=== PATIENT | female | born 1995 | race Caucasian/White ===

== ENCOUNTER 2016-10-17 05:33 | Emergency (ER) | payer SELFPAY ==
[~2016-10-17] VITALS: Ht 170.2 cm; Wt 56.8 kg
[2016-10-17 05:38] VITALS: TEMP 97.6
[2016-10-17] MEDS ORDERED: XANAX 1MG1 MG PO (05:43)
[2016-10-17 06:21] LABS: BASO % 0.5 % (0.0-2.0); EOS # 0.1 (0.0-0.7); EOS % 1.4 % (0-4.0); GRAN # 3.3 (1.4-6.5); GRAN % 49.5 % (42.2-75.2); HEMATOCRIT 38.5 % (35.0-45.0); HEMOGLOBIN 12.8 g/dl (12.0-15.0); LYMPH # 2.7 (1.2-3.4); LYMPH % 41.2 % (20.0-51.0); MEAN CELL VOLUME 93 fl (80.0-95.0); MEAN CORPUSCULAR HEMOGLOBIN 31 pg (26.0-32.0); MEAN CORPUSCULAR HGB CONC 33 g/dl (33.0-37.0); MEAN PLATELET VOLUME 11.3 fl (7.4-10.4); MONO # 0.5 (0.1-0.6); MONO % 7.2 % (1.7-9.3); PLATELET COUNT 209 K/mm3 (130-400); RED BLOOD COUNT 4.15 M/mm3 (4.10-5.30); REDCELL DISTRIBUTION WIDTH-CV 13.9 % (11.5-14.5); WHITE BLOOD COUNT 6.6 K/mm3 (4.8-10.8)
[2016-10-17 06:25] LABS: PH 6 (5-8); SQUAMOUS EPITHELIAL 20-50 /hpf; URINE APPEARANCE Hazy; URINE BACTERIA Rare /hpf; URINE BILIRUBIN Negative (NEGATIVE); URINE BLOOD Negative (NEGATIVE); URINE COLOR Yellow; URINE GLUCOSE Negative (NEGATIVE); URINE KETONE Negative (NEGATIVE); URINE RBC 0-2 /hpf; URINE UROBILINOGEN Negative (NEGATIVE)
[2016-10-17 06:34] LABS: ADJUSTED CALCIUM 8.8 mg/dL (8.4-10.2); ALBUMIN 4.3 gm/dL (3.5-5.0); BILIRUBIN,TOTAL 0.7 mg/dL (0.0-1.0); CREATININE, serum 0.65 mg/dL (0.52-1.25); POTASSIUM 4.3 mmol/L (3.4-5.0); TOTAL PROTEIN 7.8 gm/dL (6.4-8.2)
[2016-10-17 08:11] VITALS: BP 109/68; PULSE 62
== END 2016-10-17 08:13 | disposition home or self-care (01) ==
LOC: COL.ER 05:33
PROVIDERS: Emergency Medicine
DX: R10.13 Epigastric pain (principal); F41.9 Anxiety disorder, unspecified; Z32.02 Encounter for pregnancy test, result negative; Z90.49 Acquired absence of other specified parts of digestive tract
CPT/HCPCS: J1170; J2405; J7030

== ENCOUNTER 2019-01-07 02:28 | Emergency (ER) | payer SELFPAY ==
[~2019-01-07] VITALS: Ht 170.2 cm; Wt 61.4 kg
[~2019-01-07 02:28] MED LIST: XANAX 1MG1 MG PO
[2019-01-07 03:31] LABS: ALANINE AMINOTRANSFERASE 20 U/L (9-52); ALBUMIN 4.4 gm/dL (3.5-5.0); ALCOHOL(ethanol),MEDICAL 276 mg/dL; ALKALINE PHOSPHATASE 65 U/L (50-136); ANION GAP 11 mmol/L (7-16); AST,SGOT 28 U/L (15-37); BILIRUBIN,TOTAL 0.3 mg/dL (0.0-1.0); BLOOD UREA NITROGEN 14 mg/dL (7-17); CALCIUM 8.8 mg/dL (8.4-10.2); CARBON DIOXIDE 23 mmol/L (22-30); CHLORIDE 109 mmol/L (98-107); CREATININE, serum 0.73 (0.52-1.25); GLUCOSE 100 mg/dL (74-106); POTASSIUM 3.5 mmol/L (3.4-5.0); SODIUM 144 mmol/L (137-145); TOTAL PROTEIN 7.7 gm/dL (6.4-8.2)
[2019-01-07 03:32] LABS: SALICYLATE < 1.0 mg/dL
[2019-01-07 08:31] VITALS: BP 98/56; PULSE 100; TEMP 98.1
== END 2019-01-07 08:32 | disposition home or self-care (01) ==
LOC: COL.ER 02:28
PROVIDERS: Emergency Medicine
DX: F10.129 Alcohol abuse with intoxication, unspecified (principal); Y90.8 Blood alcohol level of 240 mg/100 ml or more
CPT/HCPCS: J2405; J7030

== ENCOUNTER 2019-01-19 10:21 | Emergency (ER) | payer SELFPAY ==
[~2019-01-19] VITALS: Ht 170.2 cm; Wt 62.7 kg
[2019-01-19 10:33] VITALS: BP 121/75; TEMP 98.9
[2019-01-19 11:19] LABS: BASO % 0.4 % (0.0-2.0); EOS # 0.1 (0.0-0.7); EOS % 1.3 % (0-4.0); GRAN # 3.5 (1.4-6.5); GRAN % 64.1 % (42.2-75.2); HEMATOCRIT 40.8 % (37.0-47.0); HEMOGLOBIN 13.3 g/dl (12.5-16.0); LYMPH # 1.4 (1.2-3.4); LYMPH % 26.3 % (20.0-51.0); MEAN CELL VOLUME 97 fl (80.0-100.0); MEAN CORPUSCULAR HEMOGLOBIN 32 pg (27.0-31.0); MEAN CORPUSCULAR HGB CONC 33 g/dl (33.0-37.0); MEAN PLATELET VOLUME 10.6 fl (7.4-10.4); MONO # 0.4 (0.1-0.6); MONO % 7.7 % (1.7-9.3); PLATELET COUNT 192 K/mm3 (130-400); RED BLOOD COUNT 4.21 M/mm3 (4.10-5.30); REDCELL DISTRIBUTION WIDTH-CV 14.8 % (11.5-14.5)
[2019-01-19 12:39] VITALS: PULSE 72
[2019-01-19 20:02] LABS: COLLECTION METHOD CLEAN CATCH
[2019-01-19 20:27] LABS: AMORPHOUS CRYSTAL Present /uL; MUCOUS Present /lpf; PH 5 (5-8); SQUAMOUS EPITHELIAL None Seen /hpf; URINE APPEARANCE Turbid; URINE BACTERIA Many /hpf; URINE BILIRUBIN Negative (NEGATIVE); URINE BLOOD Negative (NEGATIVE); URINE COLOR Yellow; URINE GLUCOSE Negative (NEGATIVE); URINE KETONE Negative (NEGATIVE); URINE LEUKOCYTE ESTERASE Negative (NEGATIVE); URINE NITRATE Negative (NEGATIVE); URINE PROTEIN(semi-quant) Negative (NEGATIVE); URINE RBC None Seen /hpf; URINE UROBILINOGEN Negative (NEGATIVE)
== END 2019-01-19 12:39 | disposition home or self-care (01) ==
LOC: COL.ER 10:21
PROVIDERS: Physician Assistant
DX: T38.5X5A Adverse effect of other estrogens and progestogens, initial encounter (principal); N93.8 Other specified abnormal uterine and vaginal bleeding; F41.9 Anxiety disorder, unspecified; Z90.89 Acquired absence of other organs; Z88.0 Allergy status to penicillin; Z88.6 Allergy status to analgesic agent
CPT/HCPCS: J1885

== ENCOUNTER 2019-02-15 00:45 | Observation (INO) | payer SELFPAY ==
[~2019-02-15] VITALS: Ht 170.2 cm; Wt 61.4 kg
[2019-02-15 02:10] LABS: HEMOGLOBIN 11.5 g/dl (12.5-16.0); MEAN CELL VOLUME 98 fl (80.0-100.0); MEAN CORPUSCULAR HEMOGLOBIN 32 pg (27.0-31.0); MEAN CORPUSCULAR HGB CONC 32 g/dl (33.0-37.0); PLATELET COUNT 94 K/mm3 (130-400); RED BLOOD COUNT 3.64 M/mm3 (4.10-5.30); REDCELL DISTRIBUTION WIDTH-CV 15.2 % (11.5-14.5)
[2019-02-15 02:11] LABS: HEMATOCRIT 35.5 % (37.0-47.0)
[2019-02-15 02:14] LABS: COLLECTION METHOD CLEAN CATCH
[2019-02-15 02:22] LABS: ALBUMIN 3.6 gm/dL (3.5-5.0); BILIRUBIN,TOTAL 0.4 mg/dL (0.0-1.0); C-REACTIVE PROTEIN 1.5 mg/dL (0.0-0.9); CALCIUM 8.9 mg/dL (8.4-10.2); CREATININE, serum 0.81 (0.52-1.25); POTASSIUM 3.9 mmol/L (3.4-5.0); TOTAL PROTEIN 6.9 gm/dL (6.4-8.2)
[2019-02-15 02:28] LABS: BAND 6 % (0-10); LYMPHOCYTE 60 % (20.0-51.0); NEUTROPHILS 28 % (42.0-75.2); PLATELET ESTIMATE DECREASED (NORMAL)
[2019-02-15 02:28] LABS: MUCOUS Present /lpf; PH 6 (5-8); SQUAMOUS EPITHELIAL 0-2 /hpf; URINE APPEARANCE Clear; URINE BACTERIA Rare /hpf; URINE BILIRUBIN Negative (NEGATIVE); URINE BLOOD 1+ (NEGATIVE); URINE COLOR Yellow; URINE GLUCOSE Negative (NEGATIVE); URINE KETONE Negative (NEGATIVE); URINE LEUKOCYTE ESTERASE Negative (NEGATIVE); URINE NITRATE Negative (NEGATIVE); URINE PROTEIN(semi-quant) Negative (NEGATIVE); URINE RBC 0-2 /hpf; URINE UROBILINOGEN Negative (NEGATIVE)
[2019-02-15 05:28] LABS: MONOSCREEN NEGATIVE
[2019-02-15 08:10] LABS: PATHOLOGY DIFF REVIEW OK +
--- NOTE | 2019-02-15 09:58 | NUR ---
SW met with the patient to discuss a discharge plan. The patient lives alone in [place]. The patient does not use DME and reports independence with ADLs. The patient does not have a PCP and was not interested in a list of providers. The patient receives medications from [facility] pharmacy and has difficulty affording them and will need a voucher upon discharge if medications are precribed. The patient may also need transportation at discharge. agricultural services director will continue to follow.
[2019-02-15 13:23] VITALS: BP 96/46; PULSE 77; TEMP 98.2
[2019-02-15 14:43] LABS: HEMOGLOBIN 11.1 g/dl (12.5-16.0); MEAN CELL VOLUME 98 fl (80.0-100.0); MEAN CORPUSCULAR HEMOGLOBIN 32 pg (27.0-31.0); MEAN CORPUSCULAR HGB CONC 32 g/dl (33.0-37.0); MEAN PLATELET VOLUME 11.5 fl (7.4-10.4); PLATELET COUNT 84 K/mm3 (130-400); RED BLOOD COUNT 3.51 M/mm3 (4.10-5.30); REDCELL DISTRIBUTION WIDTH-CV 15.4 % (11.5-14.5)
[2019-02-15 14:45] LABS: HEMATOCRIT 34.4 % (37.0-47.0)
[2019-02-15 15:11] LABS: BAND 3 % (0-10); METAMYELOCYTE 3 % (0-0); NEUTROPHILS 36 % (42.0-75.2); PLATELET ESTIMATE DECREASED (NORMAL)
[2019-02-15 15:12] LABS: LYMPHOCYTE 49 % (20.0-51.0)
[2019-02-15 15:57] VITALS: BP 87/50; PULSE 76; TEMP 98.7
[2019-02-15 19:22] VITALS: BP 104/51; PULSE 84; TEMP 98.3
--- NOTE | 2019-02-15 21:45 | NUR ---
Pt resting in bed. No distress noted. Significant other at bedside. Respirations even and unlabored. Lungs clear. Abdomen soft, nontender. BS+. Pt reports pain 7/10 in abdomen-dull. Pt refused dinner this PM. Denies nausea at this time. No needs noted.
[2019-02-15 22:32] VITALS: BP 116/64; PULSE 77; TEMP 98.9
[2019-02-16 04:30] VITALS: BP 106/64; PULSE 85; TEMP 98.8
--- NOTE | 2019-02-16 06:50 | NUR ---
Report given to Vernell MARCELO. Pt is sleeping. No distress noted. Pt has rested well throughout the night with minimal complaints. PRN pain medication given x1.
[2019-02-16 08:13] VITALS: BP 92/43; PULSE 80; TEMP 97.8
--- NOTE | 2019-02-16 09:25 | NUR ---
Patient ready for discharge. Dr. Li rounded & orders obtained. Reviewed paperwork. She denies question or concerns. Patient ambulated out with all belongings, he significant other taking her home.
== END 2019-02-16 09:50 | disposition home or self-care (01) ==
LOC: COL.ER 00:45 → SURG 06:30
PROVIDERS: Emergency Medicine; Physician Assistant; ADMIT Surgery
DX: R10.31 Right lower quadrant pain (principal); R11.2 Nausea with vomiting, unspecified; R19.7 Diarrhea, unspecified
CPT/HCPCS: G0378; J1170; J1885; J2270; J2405; J2550; J3480; J7030; Q9967

== ENCOUNTER 2019-02-28 04:28 | Emergency (ER) | payer SELFPAY ==
[~2019-02-28] VITALS: Ht 170.2 cm; Wt 59.1 kg
[2019-02-28 04:33] VITALS: BP 126/65
[2019-02-28 05:25] LABS: HEMATOCRIT 38.7 % (37.0-47.0); HEMOGLOBIN 12.7 g/dl (12.5-16.0); MEAN CELL VOLUME 97 fl (80.0-100.0); MEAN CORPUSCULAR HEMOGLOBIN 32 pg (27.0-31.0); MEAN CORPUSCULAR HGB CONC 33 g/dl (33.0-37.0); MEAN PLATELET VOLUME 11.2 fl (7.4-10.4); PLATELET COUNT 123 K/mm3 (130-400); RED BLOOD COUNT 3.99 M/mm3 (4.10-5.30); REDCELL DISTRIBUTION WIDTH-CV 14.6 % (11.5-14.5)
[2019-02-28 05:32] LABS: ALBUMIN 4.2 gm/dL (3.5-5.0); BILIRUBIN,TOTAL 0.9 mg/dL (0.0-1.0); CALCIUM 8.9 mg/dL (8.4-10.2); CREATININE, serum 0.73 (0.52-1.25); POTASSIUM 3.4 mmol/L (3.4-5.0); TOTAL PROTEIN 8.1 gm/dL (6.4-8.2)
[2019-02-28 05:41] LABS: BAND 5 % (0-10); LYMPHOCYTE 37 % (20.0-51.0); NEUTROPHILS 54 % (42.0-75.2); PLATELET ESTIMATE NORMAL (NORMAL)
[2019-02-28 06:50] VITALS: PULSE 91; TEMP 99.1
== END 2019-02-28 06:50 | disposition home or self-care (01) ==
LOC: COL.ER 04:28
PROVIDERS: Emergency Medicine
DX: K52.9 Noninfective gastroenteritis and colitis, unspecified (principal); Z90.89 Acquired absence of other organs
CPT/HCPCS: J1885; J2765; J3010; J7120

== ENCOUNTER 2019-05-15 17:05 | Emergency (ER) | payer SELFPAY ==
[~2019-05-15] VITALS: Ht 170.2 cm; Wt 59.1 kg
[2019-05-15 17:54] LABS: COLLECTION METHOD CLEAN CATCH
[2019-05-15 18:01] LABS: HEMATOCRIT 38.3 % (37.0-47.0); HEMOGLOBIN 12.5 g/dl (12.5-16.0); MEAN CELL VOLUME 95 fl (80.0-100.0); MEAN CORPUSCULAR HEMOGLOBIN 31 pg (27.0-31.0); MEAN CORPUSCULAR HGB CONC 33 g/dl (33.0-37.0); MEAN PLATELET VOLUME 10.8 fl (7.4-10.4); PLATELET COUNT 196 K/mm3 (130-400); RED BLOOD COUNT 4.04 M/mm3 (4.10-5.30); REDCELL DISTRIBUTION WIDTH-CV 14.4 % (11.5-14.5)
[2019-05-15 18:09] LABS: AMORPHOUS CRYSTAL Present /uL; MUCOUS Present /lpf; PH 8 (5-8); URINE APPEARANCE Cloudy; URINE BACTERIA None Seen /hpf; URINE BILIRUBIN Negative (NEGATIVE); URINE BLOOD 3+ (NEGATIVE); URINE COLOR Red; URINE GLUCOSE Negative (NEGATIVE); URINE KETONE Negative (NEGATIVE); URINE LEUKOCYTE ESTERASE Negative (NEGATIVE); URINE NITRATE Negative (NEGATIVE); URINE PROTEIN(semi-quant) 2+ (NEGATIVE); URINE RBC >50 /hpf; URINE UROBILINOGEN Negative (NEGATIVE)
[2019-05-15 18:11] LABS: ALANINE AMINOTRANSFERASE 61 U/L (4-34); ALBUMIN 4.4 gm/dL (3.5-5.0); ALKALINE PHOSPHATASE 80 U/L (50-136); ANION GAP 10 mmol/L (7-16); AST,SGOT 57 U/L (15-37); BILIRUBIN,TOTAL 0.4 mg/dL (0.0-1.0); BLOOD UREA NITROGEN 11 mg/dL (7-17); CALCIUM 8.9 mg/dL (8.4-10.2); CARBON DIOXIDE 26 mmol/L (22-30); CHLORIDE 104 mmol/L (98-107); CREATININE, serum 0.66 (0.52-1.25); GLUCOSE 96 mg/dL (74-106); LIPASE 99 U/L (23-300); POTASSIUM 3.6 mmol/L (3.4-5.0); SODIUM 140 mmol/L (137-145); TOTAL PROTEIN 7.6 gm/dL (6.4-8.2)
[2019-05-15 18:22] LABS: C-REACTIVE PROTEIN < 0.5 mg/dL (0.0-0.9)
[2019-05-15] MEDS ORDERED: SEPTRA DS 8001 TAB PO (18:25)
[2019-05-15 19:05] VITALS: BP 114/69; PULSE 86; TEMP 98.3
[2019-05-15 19:09] LABS: BAND 4 % (0-10); EOSINOPHIL 3 % (0-4); LYMPHOCYTE 44 % (20.0-51.0); METAMYELOCYTE 1 % (0-0); NEUTROPHILS 31 % (42.0-75.2)
[2019-05-15 19:10] LABS: PLATELET ESTIMATE NORMAL (NORMAL)
[2019-05-15 19:11] LABS: HYPOCHROMIA 1+
== END 2019-05-15 19:00 | disposition home or self-care (01) ==
LOC: COL.ER 17:05
PROVIDERS: Physician Assistant
DX: R05 Cough (principal); N39.0 Urinary tract infection, site not specified
CPT/HCPCS: J2270; J2405; J7030

== ENCOUNTER 2019-06-20 12:52 | Emergency (ER) | payer SELFPAY ==
[~2019-06-20] VITALS: Ht 170.2 cm; Wt 59.1 kg
[~2019-06-20 12:52] MED LIST changes: +SEPTRA DS 8001 TAB PO
[2019-06-20 12:58] VITALS: BP 130/76; PULSE 89; TEMP 98.6
== END 2019-06-20 14:11 | disposition home or self-care (01) ==
LOC: COL.ER 12:52
PROVIDERS: Emergency Medicine
DX: Z32.02 Encounter for pregnancy test, result negative (principal); F17.290 Nicotine dependence, other tobacco product, uncomplicated

== ENCOUNTER 2019-06-26 20:20 | Emergency (ER) | payer SELFPAY ==
[~2019-06-26] VITALS: Ht 170.2 cm; Wt 61.4 kg
[2019-06-26 20:26] VITALS: BP 132/68; TEMP 98.1
[2019-06-26 20:46] LABS: HEMATOCRIT 38.1 % (37.0-47.0); HEMOGLOBIN 12.3 g/dl (12.5-16.0); MEAN CELL VOLUME 97 fl (80.0-100.0); MEAN CORPUSCULAR HEMOGLOBIN 31 pg (27.0-31.0); MEAN CORPUSCULAR HGB CONC 32 g/dl (33.0-37.0); MEAN PLATELET VOLUME 10.9 fl (7.4-10.4); PLATELET COUNT 198 K/mm3 (130-400); RED BLOOD COUNT 3.93 M/mm3 (4.10-5.30); REDCELL DISTRIBUTION WIDTH-CV 14.3 % (11.5-14.5)
[2019-06-26 21:14] LABS: EOSINOPHIL 3 % (0-4); LYMPHOCYTE 56 % (20.0-51.0); NEUTROPHILS 40 % (42.0-75.2)
[2019-06-26 21:15] LABS: PLATELET ESTIMATE NORMAL (NORMAL)
[2019-06-26 21:19] LABS: ALANINE AMINOTRANSFERASE 57 U/L (4-34); ALBUMIN 4.4 gm/dL (3.5-5.0); ALKALINE PHOSPHATASE 80 U/L (50-136); ANION GAP 8 mmol/L (7-16); AST,SGOT 50 U/L (15-37); BILIRUBIN,TOTAL 0.4 mg/dL (0.0-1.0); BLOOD UREA NITROGEN 13 mg/dL (7-17); CALCIUM 9.5 mg/dL (8.4-10.2); CARBON DIOXIDE 27 mmol/L (22-30); CHLORIDE 102 mmol/L (98-107); CREATININE, serum 0.65 (0.52-1.25); GLUCOSE 85 mg/dL (74-106); LIPASE 156 U/L (23-300); POTASSIUM 3.6 mmol/L (3.4-5.0); SODIUM 136 mmol/L (137-145); TOTAL PROTEIN 7.9 gm/dL (6.4-8.2)
[2019-06-26 21:25] LABS: COLLECTION METHOD CLEAN CATCH
[2019-06-26 21:25] LABS: C-REACTIVE PROTEIN < 0.5 mg/dL (0.0-0.9)
[2019-06-26 21:32] LABS: PH 6 (5-8); URINE APPEARANCE Hazy; URINE BACTERIA Rare /hpf; URINE BILIRUBIN Negative (NEGATIVE); URINE BLOOD Negative (NEGATIVE); URINE COLOR Straw; URINE GLUCOSE Negative (NEGATIVE); URINE KETONE Negative (NEGATIVE); URINE LEUKOCYTE ESTERASE Negative (NEGATIVE); URINE NITRATE Negative (NEGATIVE); URINE PROTEIN(semi-quant) Negative (NEGATIVE); URINE RBC 0-2 /hpf; URINE UROBILINOGEN Negative (NEGATIVE)
[2019-06-26 23:19] VITALS: PULSE 77
[2019-06-27 08:33] LABS: PATHOLOGY DIFF REVIEW OK
== END 2019-06-26 23:19 | disposition home or self-care (01) ==
LOC: COL.ER 20:20
PROVIDERS: Nurse Practitioner
DX: R10.31 Right lower quadrant pain (principal); Z87.891 Personal history of nicotine dependence
CPT/HCPCS: J1170; J1200; J2405; J3010; J7030

== ENCOUNTER 2019-07-17 16:32 | Emergency (ER) | payer SELFPAY ==
[~2019-07-17] VITALS: Ht 170.2 cm; Wt 59.1 kg
[2019-07-17 18:54] LABS: COLLECTION METHOD CLEAN CATCH
[2019-07-17 18:57] LABS: HEMATOCRIT 37.1 % (37.0-47.0); HEMOGLOBIN 12.3 g/dl (12.5-16.0); MEAN CELL VOLUME 96 fl (80.0-100.0); MEAN CORPUSCULAR HEMOGLOBIN 32 pg (27.0-31.0); MEAN CORPUSCULAR HGB CONC 33 g/dl (33.0-37.0); MEAN PLATELET VOLUME 10.6 fl (7.4-10.4); PLATELET COUNT 204 K/mm3 (130-400); RED BLOOD COUNT 3.87 M/mm3 (4.10-5.30); REDCELL DISTRIBUTION WIDTH-CV 13.7 % (11.5-14.5)
[2019-07-17 19:01] LABS: PH 5 (5-8); URINE APPEARANCE Clear; URINE BACTERIA None Seen /hpf; URINE BILIRUBIN Negative (NEGATIVE); URINE BLOOD Negative (NEGATIVE); URINE COLOR Straw; URINE GLUCOSE Negative (NEGATIVE); URINE KETONE Negative (NEGATIVE); URINE LEUKOCYTE ESTERASE Negative (NEGATIVE); URINE NITRATE Negative (NEGATIVE); URINE PROTEIN(semi-quant) Negative (NEGATIVE); URINE RBC 0-2 /hpf; URINE UROBILINOGEN Negative (NEGATIVE)
[2019-07-17 19:10] LABS: ALANINE AMINOTRANSFERASE 20 U/L (4-34); ALBUMIN 4.3 gm/dL (3.5-5.0); ALKALINE PHOSPHATASE 80 U/L (50-136); ANION GAP 8 mmol/L (7-16); AST,SGOT 31 U/L (15-37); BILIRUBIN,TOTAL 0.6 mg/dL (0.0-1.0); BLOOD UREA NITROGEN 12 mg/dL (7-17); CALCIUM 9.4 mg/dL (8.4-10.2); CARBON DIOXIDE 26 mmol/L (22-30); CHLORIDE 103 mmol/L (98-107); CREATININE, serum 0.66 (0.52-1.25); GLUCOSE 92 mg/dL (74-106); LIPASE 153 U/L (23-300); SODIUM 137 mmol/L (137-145)
[2019-07-17 19:11] LABS: C-REACTIVE PROTEIN < 0.5 mg/dL (0.0-0.9)
[2019-07-17 19:33] LABS: BAND 3 % (0-10); EOSINOPHIL 1 % (0-4); LYMPHOCYTE 45 % (20.0-51.0); NEUTROPHILS 47 % (42.0-75.2); PLATELET ESTIMATE NORMAL (NORMAL)
[2019-07-17 20:33] VITALS: BP 132/70; PULSE 66; TEMP 98.9
== END 2019-07-17 20:31 | disposition home or self-care (01) ==
LOC: COL.ER 16:32
PROVIDERS: Emergency Medicine
DX: R10.31 Right lower quadrant pain (principal); Z90.49 Acquired absence of other specified parts of digestive tract
CPT/HCPCS: J0780; J1170; J1200; J7030

== ENCOUNTER 2020-11-17 09:27 | Outpatient (CLI) | payer MEDICAID ==
[~2020-11-17] VITALS: Ht 167.6 cm; Wt 67.7 kg
[2020-11-17 09:30] VITALS: BP 119/78; PULSE 89; TEMP 98.4
--- NOTE | 2020-11-17 10:12 | NUR ---
0930 PATIENT HERE FOR COMPLAINTS OF LEAKING FLUID LAST NIGHT AT 1700. PATIENT WENT TO [facility] FOR LABOR CHECK AND SENT HOME FOR NO RUPTURE. PATIENT HAD MORE FLUID THIS MORNING. SVE FT/40/HIGH AND AMNIOTRACE NEGATIVE TIMES 2. IRRITABILITY NOTED BUT DOES NOT FEEL CONTRACTIONS. DR HINSON CALLED AND UPDATED ON ALL ABOVE INFORMATION. ORDERS TO DISMISS AFTER A REACTIVE STRIP.
[2020-11-17 10:19] VITALS: PULSE 78
[2020-11-17 10:31] VITALS: PULSE 78
--- NOTE | 2020-11-17 10:32 | NUR ---
1030 ALL DISCHARGE INSTRUCTIONS GIVEN TO PATIENT WITH VERBAL UNDERSTANDING NOTED. DENIES NEEDS
== END 2020-11-17 10:33 | disposition home or self-care (01) ==
LOC: LDRO 09:27
DX: O41.8X30 Other specified disorders of amniotic fluid and membranes, third trimester, not applicable or unspecified (principal); Z3A.35 35 weeks gestation of pregnancy